=== PATIENT | female | born 1955 | race Two or more races ===

== ENCOUNTER 2020-09-11 14:39 | Inpatient (IN) | payer OTHER, MEDICAID ==
[~2020-09-11] VITALS: Ht 121.9 cm; Wt 71.4 kg
[2020-09-11] MEDS ORDERED: ONDANSETRON HCL 4 MG/2 ML VIAL IV ONE (15:00)
[2020-09-11] MEDS ORDERED: MORPHINE SULFATE 4 MG/ML SYR/VIAL IV ONE (15:00)
[2020-09-11] MEDS ORDERED: SODIUM CHLORIDE 0.9% 500 ML IVB ONE (15:00)
[2020-09-11 15:31] LABS: Urine Bacteria FEW /hpf (None Seen); Urine Blood Negative /uL (Negative); Urine WBC <1 /hpf (0 - 5)
[2020-09-11 15:43] LABS: Basophils # (auto) 0.2 10 ^3/uL (0-0.2); Basophils % (auto) 1.2 % (0.0-2.0); Eosinophils # (auto) 0.1 10 ^3/uL (0-0.8); Eosinophils % (auto) 0.4 % (0.0-7.0); Hematocrit 37.1 % (36.0-46.0); Hemoglobin 12.4 g/dL (12.2-16.2); Lymphocytes # (auto) 3.1 10 ^3/uL (0.4-5.4); Mean Corpuscular Hemoglobin 28.9 pg (28.0-32.0); Mean Corpuscular Hgb Conc. 33.4 g/dL (32.0-36.0); Mean Corpuscular Volume 86.5 fL (80.0-100.0); Neutrophils # (auto) 12.2 10 ^3/uL (1.6-8.6); Neutrophils % (auto) 73.4 % (37.0-80.0); Nucleated Red Blood Cells % 0.1 %; Red Blood Cells 4.28 10^6/uL (4.0-5.20); White Blood Cell 16.6 10^3/uL (4.4-10.8)
[2020-09-11] MEDS ORDERED: metroNIDAZOLE 500MG/100ML 100 ML IV ONE (15:45)
[2020-09-11 16:01] LABS: Albumin 3.6 g/dL (3.4-5.0); BUN/Creatinine Ratio 13.8; Calcium 8.8 mg/dL (8.5-10.1); Potassium 4.5 mmol/L (3.5-5.1)
[2020-09-11 16:04] LABS: Bilirubin, Total 0.5 mg/dL (0.2-1.0)
[2020-09-11] MEDS ORDERED: MORPHINE SULF INJ 2 MG/ML SYRINGE 1ML IV PRN ×2 (17:00)
[2020-09-11] MEDS ORDERED: hydrALAZINE HCL 20 MG/ML VL IV PRN (17:00)
[2020-09-11] MEDS ORDERED: ONDANSETRON HCL 4 MG/2 ML VIAL IV PRN (17:00)
[2020-09-11] MEDS ORDERED: NITROGLYCERIN 0.4 MG SL TAB SL PRN (17:00)
[2020-09-11] MEDS ORDERED: DEXTROSE (50%) 50ML SYRG IV PRN (17:00)
[2020-09-11] MEDS: ACCU-CHEK COMFORT CURVE STRIP VI SCH ×2 (17:44→21:14)
[2020-09-11] MEDS: InsuLIN REG 1unit/0.01ml Soln (100units/ml) SC SCH ×2 (17:47→21:51)
[2020-09-11 18:41] VITALS: BP 115/60
[2020-09-11] MEDS ORDERED: LISI-716 PO (19:14)
[2020-09-11] MEDS ORDERED: METF-372 PO (19:14)
[2020-09-11] MEDS ORDERED: FENO145T27 PO (19:14)
[2020-09-11] MEDS ORDERED: ASPI81CH59 PO (19:27)
[2020-09-11] MEDS ORDERED: GLIP5TAB12 PO (19:27)
[2020-09-11] MEDS ORDERED: LISI2.5T47 PO (19:27)
[2020-09-11] MEDS ORDERED: METF-370 PO (19:27)
[2020-09-11] MEDS ORDERED: CIPR500T4 PO (19:27)
[2020-09-11] MEDS ORDERED: TOPI15CA10 PO (19:27)
[2020-09-11] MEDS ORDERED: DOXY50CA PO (19:27)
[2020-09-11] MEDS ORDERED: GLIM-6 PO (19:27)
[2020-09-11] MEDS ORDERED: ERY05OO EACHEYE (19:27)
[2020-09-11] MEDS ORDERED: CHOL20009 PO (19:27)
[2020-09-11 20:00] VITALS: BP 117/61
[2020-09-11] MEDS: metroNIDAZOLE 500MG/100ML 100 ML IV SCH (21:14)
[2020-09-12 05:00] VITALS: BP 101/50
[2020-09-12] MEDS: metroNIDAZOLE 500MG/100ML 100 ML IV SCH ×3 (05:37→21:57)
[2020-09-12] MEDS: ACCU-CHEK COMFORT CURVE STRIP VI SCH ×4 (06:28→22:23)
[2020-09-12] MEDS: InsuLIN REG 1unit/0.01ml Soln (100units/ml) SC SCH ×4 (06:28→22:00)
[2020-09-12 06:41] LABS: Basophils # (auto) 0.1 10 ^3/uL (0-0.2); Basophils % (auto) 0.6 % (0.0-2.0); Eosinophils # (auto) 0.1 10 ^3/uL (0-0.8); Eosinophils % (auto) 0.8 % (0.0-7.0); Hematocrit 33.7 % (36.0-46.0); Hemoglobin 11.3 g/dL (12.2-16.2); Lymphocytes # (auto) 2.5 10 ^3/uL (0.4-5.4); Lymphocytes % (auto) 23.8 % (10.0-50.0); Mean Corpuscular Hemoglobin 28.8 pg (28.0-32.0); Mean Corpuscular Hgb Conc. 33.5 g/dL (32.0-36.0); Mean Corpuscular Volume 86.2 fL (80.0-100.0); Monocytes # (auto) 0.8 10 ^3/uL (0-1.3); Monocytes % (auto) 7.1 % (0.0-12.0); Neutrophils # (auto) 7.2 10 ^3/uL (1.6-8.6); Neutrophils % (auto) 67.7 % (37.0-80.0); Nucleated Red Blood Cells % 0.1 %; Red Blood Cells 3.91 10^6/uL (4.0-5.20); Red Cell Distribution Width 13.1 % (11.8-14.3); White Blood Cell 10.7 10^3/uL (4.4-10.8)
[2020-09-12 06:57] LABS: Albumin 3.1 g/dL (3.4-5.0); Calcium 8.4 mg/dL (8.5-10.1)
[2020-09-12 07:03] LABS: BUN/Creatinine Ratio 16.7; Bilirubin, Total 0.6 mg/dL (0.2-1.0); Total Protein 7.3 g/dL (6.4-8.2)
[2020-09-12 09:00] VITALS: BP 134/69
[2020-09-12] MEDS: amLODIPine BESYLATE 5 MG TAB PO SCH (10:11)
[2020-09-12] MEDS: PANTOPRAZOLE 40 MG/10 ML VIAL INJ IV SCH (10:12)
[2020-09-12] MEDS: cefTRIAXone 1GM/50ML D5W 50 ML IV SCH (10:14)
[2020-09-12] MEDS: SODIUM CHLORIDE 0.9% 1,000 ML IV SCH ×2 (12:45→22:18)
[2020-09-12 13:00] VITALS: BP 115/62
[2020-09-12 17:00] VITALS: BP 100/64
[2020-09-12 21:39] VITALS: BP 101/51
[2020-09-13] MEDS: SODIUM CHLORIDE 0.9% 1,000 ML IV SCH ×2 (02:05→08:45)
[2020-09-13 05:34] VITALS: BP 99/54
[2020-09-13] MEDS: ACCU-CHEK COMFORT CURVE STRIP VI SCH ×2 (06:01→11:47)
[2020-09-13] MEDS: InsuLIN REG 1unit/0.01ml Soln (100units/ml) SC SCH ×2 (06:01→11:48)
[2020-09-13] MEDS: metroNIDAZOLE 500MG/100ML 100 ML IV SCH (06:01)
[2020-09-13 09:00] VITALS: BP 113/53
[2020-09-13] MEDS: PANTOPRAZOLE 40 MG/10 ML VIAL INJ IV SCH (10:03)
[2020-09-13] MEDS: cefTRIAXone 1GM/50ML D5W 50 ML IV SCH (10:04)
[2020-09-13 10:05] LABS: Basophils # (auto) 0 10 ^3/uL (0-0.2); Basophils % (auto) 0.5 % (0.0-2.0); Eosinophils # (auto) 0.2 10 ^3/uL (0-0.8); Eosinophils % (auto) 2.5 % (0.0-7.0); Hematocrit 33.1 % (36.0-46.0); Hemoglobin 10.9 g/dL (12.2-16.2); Lymphocytes # (auto) 2.4 10 ^3/uL (0.4-5.4); Lymphocytes % (auto) 33.9 % (10.0-50.0); Mean Corpuscular Hemoglobin 28.8 pg (28.0-32.0); Mean Corpuscular Hgb Conc. 33.1 g/dL (32.0-36.0); Mean Corpuscular Volume 87.2 fL (80.0-100.0); Monocytes # (auto) 0.5 10 ^3/uL (0-1.3); Neutrophils % (auto) 56.1 % (37.0-80.0); Nucleated Red Blood Cells % 0.1 %; Red Blood Cells 3.79 10^6/uL (4.0-5.20); Red Cell Distribution Width 12.8 % (11.8-14.3); White Blood Cell 7.1 10^3/uL (4.4-10.8)
[2020-09-13] MEDS: amLODIPine BESYLATE 5 MG TAB PO SCH (10:06)
[2020-09-13 11:41] VITALS: BP 113/53
[2020-09-13 12:25] VITALS: BP 163/83
== END 2020-09-13 14:43 | disposition home or self-care (01) | DRG 872 ==
LOC: ER 14:39 → OVERFLOW 16:51 → EAST 18:19
PROVIDERS: ADMIT Nurse Practitioner Acute Care; ATTEND Family Medicine
DX: A41.9 Sepsis, unspecified organism (principal); K57.32 Diverticulitis of large intestine without perforation or abscess without bleeding; Z68.42 Body mass index [BMI] 45.0-49.9, adult; E11.9 Type 2 diabetes mellitus without complications; I10 Essential (primary) hypertension; E66.9 Obesity, unspecified; Z20.822 Contact with and (suspected) exposure to COVID-19; E78.00 Pure hypercholesterolemia, unspecified; E78.5 Hyperlipidemia, unspecified; F17.210 Nicotine dependence, cigarettes, uncomplicated; Z79.84 Long term (current) use of oral hypoglycemic drugs; Z83.3 Family history of diabetes mellitus; Z90.49 Acquired absence of other specified parts of digestive tract; Z90.710 Acquired absence of both cervix and uterus
CPT/HCPCS: 36415; 74176; 80053; 81001; 82962; 83036; 83690; 85025; 87426; 93005; 96361; 96365; 96366; 96375; C9113; G0378; J0696; J1815; J2405; J3490

== ENCOUNTER 2023-02-22 03:55 | Emergency (ER) | payer OTHER, MEDICAID ==
[~2023-02-22] VITALS: Ht 149.9 cm; Wt 77.6 kg
[~2023-02-22 03:55] MED LIST: ASPI81CH59 PO; CHOL20009 PO; CIPR500T4 PO; DOXY50CA PO; ERY05OO EACHEYE; FENO145T27 PO; GLIM2TAB94 PO; GLIP5TAB12 PO; LISI10TA34 PO; LISI2.5T47 PO; METF-370 PO; METF-372 PO; TOPI15CA10 PO
[2023-02-22 05:29] LABS: Basophils # (auto) 0.1 10 ^3/uL (0-0.2); Basophils % (auto) 0.5 % (0.0-2.0); Eosinophils # (auto) 0.1 10 ^3/uL (0-0.8); Eosinophils % (auto) 0.7 % (0.0-7.0); Hematocrit 38.6 % (36.0-46.0); Hemoglobin 12.5 g/dL (12.2-16.2); Lymphocytes # (auto) 3.1 10 ^3/uL (0.4-5.4); Lymphocytes % (auto) 20.6 % (10.0-50.0); Mean Corpuscular Hemoglobin 28.3 pg (28.0-32.0); Mean Corpuscular Hgb Conc. 32.4 g/dL (32.0-36.0); Mean Corpuscular Volume 87.3 fL (80.0-100.0); Monocytes % (auto) 6.6 % (0.0-12.0); Neutrophils # (auto) 10.6 10 ^3/uL (1.6-8.6); Neutrophils % (auto) 71.6 % (37.0-80.0); Nucleated Red Blood Cells % 0.1 %; Red Blood Cells 4.41 10^6/uL (4.0-5.20); Red Cell Distribution Width 13.7 % (11.8-14.3); White Blood Cell 14.9 10^3/uL (4.4-10.8)
[2023-02-22 05:52] LABS: Alanine Aminotransferase 15 U/L (7-40); Alkaline Phosphatase 109 U/L (46-116); Anion Gap 11 (5-15); Aspartate Aminotransferase 10 U/L (13-40); BUN/Creatinine Ratio 8.2 (10.0-20.0); Blood Urea Nitrogen 5 mg/dL (9-23); Carbon Dioxide 22 mmol/L (20-30); Chloride 101 mmol/L (98-107); Glucose 209 mg/dL (74-106); Potassium 3.9 mmol/L (3.5-5.1); Sodium 134 mmol/L (136-145)
[2023-02-22 05:53] LABS: Albumin 4.5 g/dL (3.2-4.8); Bilirubin, Total 0.9 mg/dL (0.2-1.0); Total Protein 7.3 g/dL (5.7-8.2)
[2023-02-22 06:20] VITALS: PULSE 90; RESP 20; TEMP 99; O2SAT 98
[2023-02-22 06:31] LABS: Urine Bacteria NONE SEEN /hpf (None Seen); Urine Blood Negative /uL (Negative); Urine Clarity Clear (Clear); Urine Color Colorless (Yellow); Urine Protein, UAD 2+ (Negative); Urine Specific Gravity 1.003 (1.001-1.035); Urine Urobilinogen Normal (Negative); Urine WBC 1 /hpf (0 - 5); Urine pH 6.5 (5.0-8.0)
[2023-02-22] MEDS ORDERED: ONDANSETRON HCL 4 MG/2 ML VIAL IV ONE (07:15)
[2023-02-22] MEDS ORDERED: MORPHINE SULFATE 4 MG/ML SYR/VIAL IV ONE (07:15)
[2023-02-22] MEDS ORDERED: IOHEXOL 300 MG/ML 100ML BOTTLE IJ ONE (07:22)
[2023-02-22 07:34] VITALS: PULSE 90; RESP 20; O2SAT 98
[2023-02-22] MEDS ORDERED: metroNIDAZOLE 500MG/100ML 100 ML IV ONE (08:15)
[2023-02-22] MEDS ORDERED: CIPROFLOXACIN 400MG/200ML 200 ML IV ONE (08:15)
[2023-02-22] MEDS ORDERED: TRAM-711 PO (09:58)
[2023-02-22] MEDS ORDERED: METR-344 PO ×3 (09:58→11:04)
[2023-02-22] MEDS ORDERED: CIPR-173 PO ×3 (09:58→11:04)
[2023-02-22 10:00] VITALS: BP 106/56; PULSE 80; RESP 18; O2SAT 98
[2023-02-22] MEDS ORDERED: NAP500T PO ×3 (10:01→11:04)
== END 2023-02-22 10:29 | disposition home or self-care (01) ==
LOC: ER 03:55
DX: K57.92 Diverticulitis of intestine, part unspecified, without perforation or abscess without bleeding (principal); E11.9 Type 2 diabetes mellitus without complications; E78.5 Hyperlipidemia, unspecified; I10 Essential (primary) hypertension; F17.210 Nicotine dependence, cigarettes, uncomplicated; Z90.49 Acquired absence of other specified parts of digestive tract; Z90.710 Acquired absence of both cervix and uterus
CPT/HCPCS: 36415; 74177; 80053; 81001; 83605; 83690; 85025; 96365; 96368; 96375; 99285; J0744; J2270; J2405; J3490; Q9967

== ENCOUNTER 2024-02-24 13:31 | Inpatient (IN) | payer OTHER, MEDICAID ==
[~2024-02-24] VITALS: Ht 149.9 cm; Wt 77.6 kg
[~2024-02-24 13:31] MED LIST changes: +AMIO200T33 PO; +APIX5TAB PO; +CIPR-173 PO; +DRON400T PO; +FURO20TA3 PO; -GLIP5TAB12 PO; +GLIP5TAB21 PO; +LEVO25TA6 PO; +METR-344 PO; +NAP500T PO
--- NOTE | 2024-02-24 13:43 | ED.PDOC ---
History of Present Illness HPI Comments 68-year-old female came to the ER stating that she has been having chest pain shortness a breath which started this morning. She can not walk more than few steps without being short of breath. Chest pain does not radiate to the back. She does have a history of hypertension diabetes asthma atrial fibrillation. She has not taken any medication for her chest pain. Denies any other symptoms. Time Seen by MD: 13:35 Primary Care Provider: LAINA MONTILLA Reviewed Notes: Nurses Notes, Medications, Allergies Allergies: Coded Allergies: NO KNOWN ALLERGIES (Unverified , 09/11/20) Home Meds Active Scripts Naproxen (NAPROSYN TABLET) 500 Mg Tb, 1 TAB PO BID PRN, #20 TAB 1 Refill Prov:ESDRAS CROSS MD 02/22/23 Metronidazole (Flagyl) 500 Mg Tab, 1 TAB PO BID, #20 TAB Prov:ESDRAS CROSS MD 02/22/23 Ciprofloxacin Hcl (Cipro) 500 Mg Tab, 1 TAB PO BID, #20 TAB Prov:ESDRAS CROSS MD 02/22/23 Reported Medications Topiramate (Topiramate) 15 Mg Cap, PO 09/11/20 Cholecalciferol (VITAMIN D) 2,000 Unit Tab, 1 TAB PO DAILYPRN 09/11/20 Lisinopril (Lisinopril) 2.5 Mg Tab, PO 09/11/20 Metformin Hydrochloride (Metformin Hcl) 500 Mg Tab, PO 09/11/20 Glipizide (Glipizide) 5 Mg Tab, PO 09/11/20 Erythromycin (Erythromycin) 5 Mg/Gm Oin, 0.25 EACHEYE 09/11/20 Doxycycline Hyclate (Doxycycline Hyclate) 50 Mg Cap, 1 CAP PO BID 09/11/20 Glimepiride (Glimepiride) 2 Mg Tab, 1 TAB PO DAILYPRN 09/11/20 Ciprofloxacin Hcl (Ciprofloxacin Hcl) 500 Mg Tab, 1 TAB PO BID 09/11/20 Aspirin (Aspirin Low Dose) 81 Mg Chw, 1 TAB PO DAILYPRN 09/11/20 Fenofibrate (FENOFIBRATE) 145 Mg Tab, 1 TAB PO DAILYPRN 09/11/20 Lisinopril (Lisinopril) 10 Mg Tab, 1 TAB PO DAILYPRN 09/11/20 Metformin Hydrochloride (Metformin Hcl) 1,000 Mg Tab, 1 TAB PO BID 09/11/20 Information Source: Patient Mode of Arrival: Ambulatory Severity: Moderate Timing: Hours Duration: Since onset Past Medical History PAST MEDICAL HISTORY: AFIB, DM, High Lipids, HTN Surgical History: Cholecystectomy, , 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 Family History Family History: Reviewed,noncontributory to illness, Family hx of DM Social History Smoker: Cigarettes Alcohol: Denies ETOH Use Drugs: Denies Drug Use Lives In: Home Constitutional: denies: chills, diaphoresis, fatigue, fever, malaise, sweats, weakness, others EENTM: denies: blurred vision, double vision, ear bleeding, ear discharge, ear drainage, ear pain, ear ringing, eye pain, eye redness, hearing loss, mouth pain, mouth swelling, nasal discharge, nose bleeding, nose congestion, nose pain, photophobia, tearing, throat pain, throat swelling, voice changes, others Respiratory: reports: SOB with excertion; denies: cough, hemoptysis, orthopnea, SOB at rest, shortness of breath, stridor, wheezing, others Cardiovascular: reports: chest pain; denies: dizzy spells, diaphoresis, Dyspnea on exertion, edema, irregular heart beat, left arm pain, lightheadedness, palpitations, PND, syncope, others Gastrointestinal: denies: abdomen distended, abdominal pain, blood streaked bowels, constipated, diarrhea, dysphagia, difficulty swallowing, hematemesis, melena, nausea, poor appetite, poor fluid intake, rectal bleeding, rectal pain, vomiting, others Genitourinary: denies: abnormal vagina bleeding, burning, dyspareunia, dysuria, flank pain, frequency, hematuria, incontinence, pain, , vagina discharge, urgency, others Neurological: denies: dizziness, fainting, headache, left sided numbness, left sided weakness, numbness, paresthesia, pre-existing deficit, right sided numbness, right sided weakness, seizure, speech problems, tingling, tremors, weakness, others Musculoskeletal: denies: back pain, gout, joint pain, joint swelling, muscle pain, muscle stiffness, neck pain, others Integumetry: denies: bruises, change in color, change in hair/nails, dryness, laceration, lesions, lumps, rash, wounds, others Allergic/Immunocompromised: denies: Difficulty Healing, Frequent Infections, Hives, Itching, others Hematologic/Lymphatic: denies: anemia, blood clots, easy bleeding, easy bruising, swollen glands, others Endocrine: denies: excessive hunger, excessive sweating, excessive thirst, excessive urination, flushing, intolerance to cold, intolerance to heat, unexplained weight gain, unexplained weight loss, others Psychiatric: denies: anxiety, bipolar disorder, depression, hopeless, panic disorder, schizophrenia, sleepless, suicidal, others Physical Exam General Appearance: Moderate Distress HEENT: Normal ENT Inspection, Pharynx Normal, TMs Normal Neck: Full Range of Motion, Non-Tender, Normal, Normal Inspection Respiratory: Other (Coarse breath sounds) Cardiovascular: Irregular Breast Exam: Deferred Gastrointestinal: No Organomegaly, Non Tender, No Pulsatile Mass, Normal Bowel Sounds, Soft Genitalia: Deferred Pelvic: Deferred Rectal: Deferred Extremities: No calf tenderness, Normal capillary refill, Normal inspection, Normal range of motion, Non-tender, No pedal edema Musculoskeletal : Apperance: Normal Neurologic: Alert, divorce mediator II-XII nml as Tested, No Motor Deficits, Normal Affect, Normal Mood, No Sensory Deficits Cerebellar Function: NOT DONE Reflexes: NOT DONE Skin: Dry, Normal Color, Warm Peripheral Pulses: 3+ Radial (R), 3+ Radial (L) Lymphatic: No Adenopathy Was a procedure done? Was a procedure done?: No Differential Dx Considerations may include: Chest pain Electrolyte imbalance X-Ray, Labs, Meds, VS Patient alert. Complaining of chest pain. Shortness of breath. Vitals stable. Chronic history. Chest pain is new onset. Was given aspirin. EKG reviewed shows atrial fibrillation. Reviewed her previous visit. Explained to the patient. Continue cardiac monitoring. Time of 1ST Reevaluation: 13:41 Reevaluation 1ST: Unchanged Patient Education/Counseling: Diagnosis, Treatment, Prognosis Family Education/Counseling: No Family Present Departure 1 Departure Time of Disposition: 13:42 Impression: Primary Impression: Chest pain of unknown etiology Additional Impressions: Hypertension Qualified Codes: I10 - Essential (primary) hypertension Atrial fibrillation Qualified Codes: I48.0 - Paroxysmal atrial fibrillation Disposition: ADMITTED INPATIENT Admit to: Med Surg Condition: Guarded Critical Care Note Critical Care Time?: Yes (90 min-critical care time only) Stability Stability form required: No Heart Score Heart Score: Heart Score Response (Comments) Value History Slightly Suspicious 0 EKG Normal 0 Age >65 2 Risk Factors >3 or Hx ASHD 2 Troponin Normal limit 0 Total 4 RAVEN LAUREN MD Feb 24, 2024 13:43
[2024-02-24 14:04] LABS: Basophils # (auto) 0 10 ^3/uL (0-0.2); Basophils % (auto) 0.4 % (0.0-2.0); Eosinophils # (auto) 0.1 10 ^3/uL (0-0.8); Eosinophils % (auto) 1.3 % (0.0-7.0); Hematocrit 36.2 % (36.0-46.0); Lymphocytes % (auto) 30.7 % (10.0-50.0); Mean Corpuscular Hemoglobin 29.1 pg (28.0-32.0); Mean Corpuscular Volume 88.2 fL (80.0-100.0); Monocytes # (auto) 0.4 10 ^3/uL (0-1.3); Monocytes % (auto) 4.3 % (0.0-12.0); Neutrophils # (auto) 6.3 10 ^3/uL (1.6-8.6); Neutrophils % (auto) 63.3 % (37.0-80.0); Platelet Count (auto) 256 10^3/uL (140-450); Red Blood Cells 4.11 10^6/uL (4.0-5.20); Red Cell Distribution Width 12.9 % (11.8-14.3); White Blood Cell 9.9 10^3/uL (4.4-10.8)
[2024-02-24 14:13] LABS: Potassium 4.1 mmol/L (3.5-5.1); Sodium 140 mmol/L (136-145)
[2024-02-24 14:14] LABS: Anion Gap 8 (5-15); Carbon Dioxide 23 mmol/L (20-31)
[2024-02-24 14:19] LABS: BUN/Creatinine Ratio 15.9 (10.0-20.0); Blood Urea Nitrogen 10 mg/dL (9-23); Glucose 102 mg/dL (74-106)
[2024-02-24 14:26] LABS: Urine Bacteria None Seen /hpf (None Seen)
[2024-02-24 14:36] LABS: Chloride 109 mmol/L (98-107)
[2024-02-24 14:37] LABS: Urine Blood Negative /uL (Negative); Urine Clarity Clear (Clear); Urine Color Light-Yellow (Yellow); Urine Protein, UAD 1+ (Negative); Urine Specific Gravity 1.017 (1.001-1.035); Urine Squamous Epithelial Cell FEW /hpf (<5); Urine Urobilinogen Normal (Negative); Urine WBC 1 /hpf (0 - 5); Urine pH 5.5 (5.0-9.0)
[2024-02-24 16:51] VITALS: PULSE 103; RESP 16; O2SAT 96
--- NOTE | 2024-02-24 16:53 | DVH ---
EXAMINATION: AP portable chest radiograph CLINICAL HISTORY: sob COMPARISON: None TECHNIQUE: Single view of the chest FINDINGS: Negative AP chest. No dominant consolidations. The costophrenic angles are clear. No sizable pleural effusions or pneumo thorax identified. The cardiomediastinal silhouette appears within normal limits given technique. IMPRESSION: 1. Negative AP chest.
[2024-02-24] MEDS: ASPirin 325 MG TAB PO ONE (16:54)
[2024-02-24] MEDS: NITROGLYCERIN 0.4 MG SL TAB SL ONE (16:54)
[2024-02-24] MEDS ORDERED: DOCUSATE SOD 100 MG CAP PO PRN (17:45)
[2024-02-24] MEDS ORDERED: NITROGLYCERIN 0.4 MG SL TAB SL PRN (17:45)
[2024-02-24] MEDS ORDERED: MORPHINE SULFATE INJ 2 MG/ml SYRG IV PRN (17:45)
[2024-02-24] MEDS ORDERED: hydrALAZINE HCL 20 MG/ML VL IV PRN (18:00)
[2024-02-24 18:56] LABS: Amphetamine Screen, Urine Neg (NEGATIVE); Barbiturate Scree,Urine Neg (NEGATIVE); Benzodiazephine Screen, Urine Neg (NEGATIVE); Cannabinoid Screen, Urine Neg (NEGATIVE); Cocaine Screen, Urine Neg (NEGATIVE); Opiate Scree,Urine Neg (NEGATIVE); Phencyclidine Screen, Urine Neg (NEGATIVE)
[2024-02-24] MEDS: CLOPIDOGREL BISULFATE 75 MG TAB PO ONE (18:57)
[2024-02-24] MEDS: FUROSEMIDE 40 MG/4 ML VIAL IV ONE (18:57)
[2024-02-24] MEDS: ATORVASTATIN 20 MG TAB PO ONE (18:57)
[2024-02-24] MEDS: LISINOPRIL 5 MG TAB PO ONE (19:03)
[2024-02-24] MEDS: AMIODARONE HCL 200 MG TAB PO ONE (19:04)
[2024-02-24] MEDS: METOPROLOL SUCCINATE XL 50 MG TAB PO ONE (19:08)
[2024-02-24 19:14] LABS: Blood Alcohol 3.8 mg/dL (<10)
[2024-02-24] MEDS ORDERED: DEXTROSE (50%) 50ML SYRG IV PRN (19:15)
[2024-02-24 19:22] LABS: Lactic Acid w/Reflex 3.8 mmol/L (0.4-2.0)
[2024-02-24] MEDS ORDERED: ALBUTEROL SULF 2.5 MG/0.5ML(0.5%) NEB SOLN NEB PRN (19:30)
[2024-02-24] MEDS ORDERED: IPRATROPIUM BROM 0.5 MG/2.5ML INH SOL NEB PRN (19:30)
--- NOTE | 2024-02-24 19:40 | DVHHPRES ---
History of Present Illness Resident Creating Document: SUSANNA KEANE RESDIENT Reason for Visit: Shortness of breaths History of Present Illness This is a 68-year-old female, past medical history of SD, AFib, hypertension, hypercholesterolemia, came to the hospital with shortness of breaths. Per patient, today morning at 4:00 a.m. the patient waking up with severe shortness of breath which gradually worsened. Shortness of breaths was associated with chest pain and sweating. Chest pain was central chest, radiated to the left arm, comprehensive and the severity was 8/10, increased by mobility and improved by taking nitroglycerin. The patient has history of SD, 4 months back in [facility], did not performed catheterization. Cardiovascular: AFIB, CAD, HTN, SD, hyperipidemia Past Surgical History: Appendectomy, Cholecystectomy, Hysterectomy Family History: CVA, DM Smoke: No ALCOHOL: occassional Drugs: None Lives: with Family Health Maintenance: Other Review of Systems Constitutional: Yes: Sweats, Weakness Respiratory: Shortness of breath, SOB with excertion Cardiovascular: Orthopnea, Paroxysmal Noc. Dyspnea Allergies: Coded Allergies: NO KNOWN ALLERGIES (Unverified , 09/11/20) Medications Metformin 1000 mg 2 times a day, aspirin 81 mg daily, atorvastatin 20 mg daily amiodarone 200 mg daily, pravastatin 20 mg daily, lisinopril 10 mg daily, metoprolol 25 mg, Eliquis 5 mg daily, glimepiride 2 mg daily Current Medications Medications Dose Ordered Sig/Nathaly Route Start Time Stop Time Status Last Admin Dose Admin Nitroglycerin 0.4 mg Q5MINP PRN SL 02/24/24 17:45 Morphine Sulfate 2 mg Q30M PRN IV 02/24/24 17:45 Apixaban 5 mg BID PO 02/25/24 10:00 Docusate Sodium 100 mg PRN PRN PO 02/24/24 17:45 Furosemide 10 mg DAILY IV 02/25/24 10:00 Hydralazine HCl 10 mg PRN PRN IV 02/24/24 18:00 Exam Vital Signs Vital Signs Date Time Temp Pulse Resp B/P (MAP) Pulse Ox O2 Delivery O2 Flow Rate FiO2 02/24/24 18:49 98.4 101 16 118/85 (96) 96 98.4 12/24/24 16:51 Room Air* 0 21 Exam General Appearance: Alert, Oriented X3, Cooperative, No acute distress HEENT: Atraumatic, PERRLA, EOMI, Mucous membrane moist/pink Respiratory: Bilateral lower zone crypts Cardiovascular: Regular rate, Normal S1, Normal S2, No murmurs, no chest wall tenderness Abdominal: Normal bowel sounds, Soft, No tenderness, No hepatospenomegaly, No masses Extremities: Bilateral grade 1 pedal edema Skin: No rashes, No breakdown, No significant lesion Neuro: Normal gait, Normal speech, Strength at 5/5 X4 ext, Normal tone, Sensation intact, Cranial nerves 3-12 NL, Reflexes 2+ Psych/Mental Status: Mental status NL, Mood NL General Appearance: Alert, Oriented X3, Cooperative, No acute distress HEENT: Atraumatic, Mucous membr. moist/pink Respiratory: Other (Bilateral lower zone crypts) Cardiovascular: Normal S1, Normal S2, Other (Regular S1 and S2) Abdominal: Normal bowel sounds, Soft, No tenderness, No hepatospenomegaly, No masses, Other Extremities: No clubbing, No cyanosis, No edema, No tenderness/swelling Skin: No rashes, No breakdown, No significant lesion Neuro: Normal gait, Normal speech, Strength at 5/5 X4 ext, Normal tone, Sensation intact, Cranial nerves 3-12 NL, Reflexes 2+ Psych/Mental Status: Mental status NL, Mood NL Labs/Xrays Chest x-ray shows bilateral prominent bronchovascular marking, and pulmonary congestion Labs Test 02/24/24 18:31 02/24/24 14:24 02/24/24 13:51 Range/Units Urine Color Light-yellow Yellow Urine Clarity Clear Clear Urine pH 5.5 5.0-9.0 Urine Specific [place] 1.017 1.001-1.035 Urine Protein 1+ H Negative Urine Ketones Negative Negative Urine Blood Negative Negative /uL Urine Nitrite Negative Negative Urine Bilirubin Negative Negative Urine Urobilinogen Normal Negative mg/dL Urine Leukocyte Esterase Negative Negative /uL Urine RBC <1 0 - 4 /hpf Urine WBC 1 0 - 5 /hpf Urine Squamous Epithelial Cells Few <5 /hpf Urine Bacteria None seen None Seen /hpf Urine Glucose Normal Normal mg/dL Urine Opiates Screen Neg NEGATIVE Urine Fentanyl Screen Neg NEGATIVE Urine Barbiturates Screen Neg NEGATIVE Urine Phencyclidine Screen Neg NEGATIVE Urine Amphetamines Screen Neg NEGATIVE Urine Benzodiazepines Screen Neg NEGATIVE Urine Cocaine Screen Neg NEGATIVE Urine Cannabinoids Screen Neg NEGATIVE White Blood Count 9.9 4.4-10.8 10^3/uL Red Blood Count 4.11 4.0-5.20 10^6/uL Hemoglobin 12.0 L 12.2-16.2 g/dL Hematocrit 36.2 36.0-46.0 % Mean Corpuscular Volume 88.2 80.0-100.0 fL Mean Corpuscular Hemoglobin 29.1 28.0-32.0 pg Mean Corpuscular Hemoglobin Concent 33.0 32.0-36.0 g/dL Red Cell Distribution Width 12.9 11.8-14.3 % Platelet Count 256 140-450 10^3/uL Mean Platelet Volume 8.2 6.9-10.8 fL Neutrophils (%) (Auto) 63.3 37.0-80.0 % Lymphocytes (%) (Auto) 30.7 10.0-50.0 % Monocytes (%) (Auto) 4.3 0.0-12.0 % Eosinophils (%) (Auto) 1.3 0.0-7.0 % Basophils (%) (Auto) 0.4 0.0-2.0 % Neutrophils # (Auto) 6.3 1.6-8.6 10 ^3/uL Lymphocytes # (Auto) 3.0 0.4-5.4 10 ^3/uL Monocytes # (Auto) 0.4 0-1.3 10 ^3/uL Eosinophils # (Auto) 0.1 0-0.8 10 ^3/uL Basophils # (Auto) 0 0-0.2 10 ^3/uL Nucleated Red Blood Cells 0.0 % Sodium Level 140 136-145 mmol/L Potassium Level 4.1 3.5-5.1 mmol/L Chloride Level 109 H 98-107 mmol/L Carbon Dioxide Level 23 20-31 mmol/L Anion Gap 8 5-15 Blood Urea Nitrogen 10 9-23 mg/dL Creatinine 0.63 0.550-1.02 mg/dL Glomerular Filtration Rate Calc 96 >90 mL/min BUN/Creatinine Ratio 15.9 10.0-20.0 Serum Glucose 102 74-106 mg/dL Hemoglobin A1c 8.6 H <5.7 % A1C Calcium Level 8.0 L 8.7-10.4 mg/dL B-Type Natriuretic Peptide 180.29 0-100 pg/mL Assessment/Plan Assessment/Plan # Acute on chronic systolic heart failure # possible ACS # history of SD, 4 months back Patient complained of shortness of breaths, chest pain, on physical examination bilateral lower zone crypts with grade 1 pedal edema Chest x-ray shows bilateral reticulonodular infiltration, with pulmonary vascular congestion EKG, shows atrial fibrillation with no acute ST or T-wave changes Trop I series, 1st result is within normal limits Check BNP, echocardiogram, lipid profile Counseled Cardiology Aspirin 325 mg Clopidogrel 75 mg Nitroglycerin sublingual # Sepsis, likely due to pneumonia # Pneumonia, likely due to Gram-positive Gram-negative bacteria/viral # Chest x-ray shows bilateral reticulonodular infiltration, with pulmonary vascular congestion # lactic acidosis Check COVID-19, influenza type a and B, MRSA nares Blood, and urine culture Injection azithromycin and ceftriaxone Breathing treatment q.4 hours as needed # chronic Atrial fibrillation Continue Eliquis 5 mg b.i.d. Continue amiodarone 200 mg daily # uncontrolled diabetes mellitus Hb A1c is 8.6 Insulin according to sliding scale #Hypertension Continue lisinopril 10 mg daily Continue metoprolol 25 mg daily # Hyperlipidemia Continue atorvastatin 40 mg daily DIET: Cardiac diet DVT PROPHYLAXIS: Patient is on Eliquis GI PROPHYLAXIS: Protonix BOWEL REGIMEN: Colace 100 mg as needed CODE STATUS: Goal of care discussed for more than 25 minutes, full code DISPOSITION: Telemetry Patient's status discussed with the patient and the son (Monty) on the bedside. Case discussed with Dr. Eaton Plan discussed with: Patient, Son (Monty on the bedside) My Orders Orders - SUSANNA KEANE RESDIENT Procedure Category Date Status Time Admit ADMIT 02/24/24 Transmitted 17:33 Nitroglycerin PHA 02/24/24 In Process Sublingual (Ntrostat 17:45 Morphine Sulfate PHA 02/24/24 In Process Injection 17:45 Oxygen By Nasal RT 02/24/24 Transmitted Cannula 17:33 Stat Ekg For Chest CANDIE 02/24/24 In Process Pain 17:33 Notify Of Changes [facility] 02/24/24 In Process From Base 17:33 Glove Cutter For [facility] 02/24/24 In Process 24 Hours 17:33 Emergency Dysrhythmia CANDIE 02/24/24 In Process Protocol 17:33 Rhythm Strips Once [facility] 02/24/24 In Process Every Shift 17:33 Troponin-I Hs LAB 02/24/24 In Process 17:36 Troponin-I Hs LAB 02/24/24 Logged 18:36 Troponin-I Hs LAB 02/24/24 Logged 20:36 Thyroid Stimulating LAB 02/24/24 In Process Hormone 17:36 Blood Alcohol LAB 02/24/24 In Process 17:36 Covid19 Antigen Judie LAB 02/24/24 Logged Glove Cutter ORDERS 02/24/24 Transmitted 17:36 Echo 2d Mode Cardiac US 02/24/24 Logged DOP 17:36 Lipid Panel LAB 02/24/24 In Process 17:36 Aspartate Amino LAB 02/24/24 In Process Transferase 17:36 Alanine LAB 02/24/24 In Process Aminotransferase 17:36 Docusate Sodium PHA 02/24/24 In Process Capsule (Colace 17:45 Furosemide Injection PHA 02/25/24 In Process (Lasix Injection) 10:00 Lactic Acid W/ Reflex LAB 02/24/24 In Process Order 17:55 Accucheck BD 02/24/24 Transmitted 17:58 Cardiac DIET 02/24/24 Transmitted Diet-2gna,Lofat,Lochol Dinner D-Dimer LAB 02/24/24 In Process 18:08 Apixaban (Eliquis) PHA 02/25/24 In Process 10:00 Metoprolol Xl PHA 02/25/24 In Process Succinate (Toprol Xl) 10:00 Lisinopril Tablet PHA 02/25/24 In Process (Zestril Tablet) 10:00 Clopidogrel Bisulfate PHA 02/25/24 In Process (Plavix) 10:00 Atorvastatin (Lipitor) PHA 02/24/24 In Process 22:00 Aspirin Tablet PHA 02/25/24 In Process 10:00 Amiodarone Tablet PHA 02/25/24 In Process (Cordarone Tablet) 10:00 Ac Mild Insulin Scale CANDIE 02/24/24 In Process (Not Rx) 18:56 Date of Service: Feb 24, 2024 Billing Provider: MAYANK EATON MD Common Visit Codes: 60273-HXCDWPP INP/OBS CARE (HIGH) Secondary Visit Codes: 61747-AQELTLDQ CARE PLAN 30 MINUTES SUSANNA KEANE RESDIENT Feb 24, 2024 19:40 MAYANK EATON MD Feb 24, 2024 20:22
[2024-02-24 20:30] VITALS: BP 176/88; PULSE 101; RESP 18; TEMP 98.4; O2SAT 96
[2024-02-24] MEDS: InsuLIN REG 1unit/0.01ml Soln (100units/ml) SC SCH (20:32)
[2024-02-24] MEDS: ACCU-CHEK COMFORT CURVE STRIP VI SCH (20:32)
[2024-02-24] MEDS: PANTOPRAZOLE 40 MG TAB PO ONE (20:36)
[2024-02-24 22:09] VITALS: BP 168/79; PULSE 95; RESP 17; TEMP 97.7; O2SAT 96
[2024-02-24] MEDS: ATORVASTATIN 20 MG TAB PO SCH (23:17)
[2024-02-25] VITALS (10 sets, daily range): BP systolic 108–133; BP diastolic 57–89; PULSE 71–105; RESP 16–20; TEMP 97.7–98.3; O2SAT 95–96
[2024-02-25 01:21] LABS: COVID19 ANTIGEN SOFIA FIA NEGATIVE (NEGATIVE)
[2024-02-25] MEDS: PANTOPRAZOLE 40 MG TAB PO SCH (04:44)
[2024-02-25] MEDS: cefTRIAXone 1GM/50ML D5W 50 ML IV SCH (09:02)
[2024-02-25] MEDS: AZITHROMYCIN 500MG/ 250ML 250 ML IV SCH (09:56)
[2024-02-25] MEDS: AMIODARONE HCL 200 MG TAB PO SCH (09:56)
[2024-02-25] MEDS: LISINOPRIL 5 MG TAB PO SCH (09:57)
[2024-02-25] MEDS: ASPirin 81 mg TAB PO SCH (09:58)
[2024-02-25] MEDS: METOPROLOL SUCCINATE XL 50 MG TAB PO SCH (09:58)
[2024-02-25] MEDS: APIXABAN 5 MG TAB PO SCH (09:58)
[2024-02-25] MEDS: FUROSEMIDE 20 MG/2 ML VIAL IV SCH (09:59)
[2024-02-25] MEDS ORDERED: CLOPIDOGREL BISULFATE 75 MG TAB PO ONE ×2 (10:00)
[2024-02-25 11:23] LABS: Lactic Acid w/Reflex 3.3 mmol/L (0.4-2.0)
--- NOTE | 2024-02-25 11:30 | DVHSR ---
APPROVED REPORT EXAM: Two-dimensional and M-mode echocardiogram with Doppler and color Doppler. Blood Pressure: 133/76 mmHg INDICATION sob and pedal edema DIMENSIONS LVDd4.0 (3.8-5.7cm)LA (2D)3.9 (1.9-4.0cm)Aortic Root2.8 (2.0-3.7cm) LVDs2.8 (2.5-4.0cm)LA (MM) (1.9-4.0cm)Aortic Cusp Exc1.7 (1.5-2.0cm) EF (%) 54.7 (55-70%)Rt. Atrium3.7 (1.9-4.0cm)Asc. Aorta cm IVSd1.3 (0.7-1.1cm)RV (D)3.2 (1.8-2.4cm) PWd1.1 (0.7-1.1cm) Mitral Valve MitralMitral Stenosis E wave1.20m/sMV Mean GR.mmHg A wave0.47m/sMV Peak GR.52mmHg E/A ratio2.62D MVAcm2 DECEL [id number] 1/2 Timems Aortic Valve Aortic ValveAortic Stenosis V10.83m/Riana Mean GR.5mmHg V21.52m/Riana Peak GR.9mmHg Pulmonic Valve V21.00m/s Tricuspid Valve TR Velocity1.82m/s [id number] Conclusion Mildly reduced left ventricular systolic function estimated ejection fraction of 45-50%. There is a grade 1 diastolic dysfunction. Normal right ventricular size and dimension. Normal right ventricular systolic function. Mildly dilated right and left atria. The aortic valve is thickened and sclerotic. Mitral valve is mildly thickened there is mild mitral valve regurgitation. There Is a mild tricuspid valve regurgitation. There is a mild pulmonary valve regurgitation. No significant pericardial effusion.
[2024-02-25] MEDS: SODIUM CHLORIDE 0.9% 1,000 ML IV ONE (12:53)
--- NOTE | 2024-02-25 13:26 | DVHINCON2 ---
DATE OF CONSULTATION: 02/25/2024 REFERRING PHYSICIAN: Dr. Swanson. CONSULTING PHYSICIAN: Dr. Baez, covering for Dr. Nuñez. INDICATION: Shortness of breath, chest pain. HISTORY OF PRESENT ILLNESS: The patient is a 68-year-old female with history of diabetes, hypertension, obesity, AFib, on anticoagulation, presented to the hospital with complaints of shortness of breath and chest pain. Described the pain as left-sided tightness, radiating to her left arm. AL has been ruled out with serial negative troponin. The patient reported that she has been having on and off exertional chest pressure prior to this episode. PAST MEDICAL HISTORY: * Diabetes. * Hypertension. * AFib. * Obesity. MEDICATIONS: Per med rec. ALLERGIES: No known drug allergies. PHYSICAL EXAMINATION: GENERAL: Alert and awake, in no form of cardiopulmonary distress. VITAL SIGNS: Blood pressure 120/89, pulse 71 per minute, saturation 90%. HEENT: No carotid bruits. No jugular venous distention. CHEST: Bilateral air entry. CARDIOVASCULAR: Submucosal and palpable. Normal S1, S2. Irregularly irregular. EXTREMITIES: No peripheral edema. DIAGNOSTIC DATA: Troponin negative x 3. Sodium 140, potassium 4.1, creatinine is 0.6. CBC is normal. ASSESSMENT: * Chest pain syndrome, possible unstable angina. * Diabetes. * Hypertension. * Atrial fibrillation, rate controlled. * Obesity. RECOMMENDATIONS: * Continue with aspirin. * Continue statin therapy. * Hold anticoagulation. * We will review echo. * The patient will need left heart catheterization to define coronary anatomy. The patient understands risks, benefits and alternatives and agreed to proceed. * Continue telemetry and monitor for now. Thank you for allowing me to partake in the care of this patient. MD UTE Coleman/KEI/JENNIFER TID: [id number] RECEIPT: [id number]
--- NOTE | 2024-02-25 15:19 | DVHPNRES ---
Progress Note Date Seen: Feb 25, 2024 Resident Creating Document: SUSANNA KEANE ZAKIYA Has the PT tested + for MRSA If YES, has PT been informed?: Yes Medical Necessity Reason Pt with a Central, PICC or Fol: No Subjective Review of Systems This is a 68-year-old female, past medical history of IA, AFib, hypertension, hypercholesterolemia, came to the hospital with shortness of breaths. Per patient, today morning at 4:00 a.m. the patient waking up with severe shortness of breath which gradually worsened. Shortness of breaths was associated with chest pain and sweating. Chest pain was central chest, radiated to the left arm, comprehensive and the severity was 8/10, increased by mobility and improved by taking nitroglycerin. The patient has history of IA, 4 months back in [facility], did not performed catheterization. Today, patient seen and examined at the bedside, patient is feeling better, but still complain of SOB. Patient reports: Feels better Changes from previous H/P or p: Changes Objective vital signs Vital Sign Date Time Temp Pulse Resp B/P (MAP) Pulse Ox O2 Delivery O2 Flow Rate FiO2 02/25/24 13:00 97.8 105 18 108/57 (74) 95 97.8 02/25/24 08:00 Room Air* 0 21 Total Intake and Output 02/24/24 02/24/24 02/25/24 15:00 23:00 07:00 Intake Total 180 ml Balance 180 ml medications Current Medications Medications Dose Ordered Sig/Nathaly Route Start Time Stop Time Status Last Admin Dose Admin Nitroglycerin 0.4 mg Q5MINP PRN SL 02/24/24 17:45 Morphine Sulfate 2 mg Q30M PRN IV 02/24/24 17:45 Docusate Sodium 100 mg PRN PRN PO 02/24/24 17:45 Metoprolol Succinate 25 mg DAILY PO 02/25/24 10:00 02/25/24 09:58 25 MG Lisinopril 10 mg DAILY PO 02/25/24 10:00 02/25/24 09:57 10 MG Atorvastatin Calcium 20 mg HS PO 02/24/24 22:00 02/24/24 23:17 20 MG Aspirin 81 mg DAILY PO 02/25/24 10:00 02/25/24 09:58 81 MG Amiodarone HCl 200 mg DAILY PO 02/25/24 10:00 02/25/24 09:56 200 MG Diagnostic Test (Pha) 1 strip IQ4HR 02/24/24 20:00 02/25/24 12:24 1 STRIP Insulin Human Regular IQ4HR SC 02/24/24 20:00 02/25/24 12:24 4 UNITS Dextrose 50 ml UD PRN IV 02/24/24 19:15 Pantoprazole Sodium 40 mg DAILY@0600 PO 02/25/24 06:00 02/25/24 04:44 40 MG Azithromycin 250 ml @ 125 mls/hr DAILY IV 02/25/24 10:00 02/25/24 09:56 125 MLS/HR Ceftriaxone Sodium 50 ml @ 100 mls/hr DAILY@09 IV 02/25/24 09:00 02/25/24 09:02 100 MLS/HR Ipratropium [place] 0.5 mg Q6HPRN PRN NEB 02/24/24 19:30 Albuterol 2.5 mg Q6HPRN PRN NEB 02/24/24 19:30 Examination General Appearance: Alert, Oriented X3, Cooperative, No acute distress HEENT: Atraumatic, PERRLA, EOMI, Mucous membrane moist/pink Respiratory: Bilateral lower zone crypts Cardiovascular: Regular rate, Normal S1, Normal S2, No murmurs, no chest wall tenderness Abdominal: Normal bowel sounds, Soft, No tenderness, No hepatospenomegaly, No masses Extremities: Bilateral grade 1 pedal edema Skin: No rashes, No breakdown, No significant lesion Neuro: Normal gait, Normal speech, Strength at 5/5 X4 ext, Normal tone, Sensation intact, Cranial nerves 3-12 NL, Reflexes 2+ Psych/Mental Status: Mental status NL, Mood NL laboratory and microbiology Laboratory Tests 02/24/24 13:51 Test 02/24/24 13:51 Range/Units Serum Glucose 102 74-106 mg/dL Microbiology Date/Time Source Procedure Growth Status 02/24/24 23:30 Nose MRSA Screen - Final Complete 02/24/24 14:24 Voided Urine Urine Culture - Preliminary Resulted Labs and/or images reviewed: Labs reviewed by me, Image(s) reviewed by me Problem List/Assessment/Plan Problem List/Assessment/Plan # Acute on chronic systolic heart failure # possible ACS # history of IA, 4 months back Patient complained of shortness of breaths, chest pain, on physical examination bilateral lower zone crypts with grade 1 pedal edema Chest x-ray shows bilateral reticulonodular infiltration, with pulmonary vascular congestion EKG, shows atrial fibrillation with no acute ST or T-wave changes Trop I series, negative Echo shows, mildly reduced left ventricular systolic function estimated ejection fraction of 45-50% Counseled Cardiology, planned for catheterization Aspirin 325 mg Clopidogrel 75 mg Nitroglycerin sublingual # Sepsis, likely due to pneumonia # Pneumonia, likely due to Gram-positive Gram-negative bacteria/viral # Chest x-ray shows bilateral reticulonodular infiltration, with pulmonary vascular congestion # lactic acidosis Check COVID-19, influenza type a and B, MRSA nares Blood, and urine culture Injection azithromycin and ceftriaxone Breathing treatment q.4 hours as needed Lactic acid is raised, discontinued lasix, give IV fluid # chronic Atrial fibrillation Continue Eliquis 5 mg b.i.d. Continue amiodarone 200 mg daily # uncontrolled diabetes mellitus Hb A1c is 8.6 Insulin according to sliding scale #Hypertension Continue lisinopril 10 mg daily Continue metoprolol 25 mg daily # Hyperlipidemia Continue atorvastatin 40 mg daily DIET: Cardiac diet DVT PROPHYLAXIS: Patient is on Eliquis GI PROPHYLAXIS: Protonix BOWEL REGIMEN: Colace 100 mg as needed CODE STATUS: Goal of care discussed for more than 25 minutes, full code DISPOSITION: Telemetry Patient's status discussed with the patient and the boyfriend on the bedside. Case discussed with Dr. Eaton Plan discussed with: Patient, Spouse, Other (RN) My Orders My Orders Orders - SUSANNA KEANE Procedure Category Date Status Time Admit ADMIT 02/24/24 Transmitted 17:33 Nitroglycerin PHA 02/24/24 In Process Sublingual (Ntrostat 17:45 Morphine Sulfate PHA 02/24/24 In Process Injection 17:45 Oxygen By Nasal RT 02/24/24 Transmitted Cannula 17:33 Stat Ekg For Chest CANDIE 02/24/24 In Process Pain 17:33 Notify Of Changes CANDIE 02/24/24 In Process From Base 17:33 Reuse Technician For CANDIE 02/24/24 In Process 24 Hours 17:33 Emergency Dysrhythmia CANDIE 02/24/24 In Process Protocol 17:33 Rhythm Strips Once [facility] 02/24/24 In Process Every Shift 17:33 Reuse Technician ORDERS 02/24/24 Transmitted 17:36 Docusate Sodium PHA 02/24/24 In Process Capsule (Colace 17:45 Accucheck BD 02/24/24 Transmitted 17:58 Cardiac DIET 02/24/24 Transmitted Diet-2gna,Lofat,Lochol Dinner Metoprolol Xl PHA 02/25/24 In Process Succinate (Toprol Xl) 10:00 Lisinopril Tablet PHA 02/25/24 In Process (Zestril Tablet) 10:00 Atorvastatin (Lipitor) PHA 02/24/24 In Process 22:00 Aspirin Tablet PHA 02/25/24 In Process 10:00 Amiodarone Tablet PHA 02/25/24 In Process (Cordarone Tablet) 10:00 Ac Mild Insulin Scale CANDIE 02/24/24 In Process (Not Rx) 18:56 Glucose Blood PHA 02/24/24 In Process (Accu-Chek Comfort 20:00 Insulin R (Human) PHA 02/24/24 In Process (Insulin R) 20:00 Dextrose 50% Syringe PHA 02/24/24 In Process 19:15 Pantoprazole Tablet PHA 02/25/24 In Process (Protonix Tablet) 06:00 Azithromycin 500mg/ PHA 02/25/24 In Process 250ml (Zithromax 50 10:00 Ceftriaxone 1gm/50ml PHA 02/25/24 In Process D5w (Rocephin) 09:00 Ipratropium Medneb PHA 02/24/24 In Process (Atrovent Medneb) 19:30 Albuterol Medneb PHA 02/24/24 In Process (Ventolin Medneb) 19:30 Blood Culture ISAC 02/24/24 In Process 19:30 Urine Bacterial ISAC 02/24/24 In Process Culture 19:30 Code Status CODE 02/24/24 Transmitted 19:41 Full Code CANDIE 02/24/24 In Process 19:41 Hepatitis B Surface LAB 02/25/24 In Process Antigen 04:00 Hepatitis C Antibody LAB 02/25/24 In Process 04:00 Echo 2d Mode Cardiac US 02/25/24 Resulted DOP 17:36 Comprehensive LAB 02/26/24 Verified Metabolic Panel 04:00 Complete Blood Count LAB 02/26/24 Verified 04:00 Sodium Chloride 0.9% PHA 02/25/24 In Process 11:45 Date of Service: Feb 25, 2024 Billing Provider: MAYANK EATON MD Common Visit Codes: [id number] INP/OBS CARE(HIGH) SUSANNA KEANE Feb 25, 2024 15:19 MAYANK EATON MD Feb 25, 2024 22:39
--- NOTE | 2024-02-25 21:21 | DVHINCON2 ---
Date of service: Feb 25, 2024 Referring Physician Nestor Reason for Consultation Cardiac cath History of Present Illness This is a 68-year-old female with a past medical history of SC, AFib, hypertension, hypercholesterolemia who presented to the ED with complaints of shortness of breath onset yesterday. Per patient, yesterday morning at 4:00 a.m. the patient woke up with severe shortness of breath which gradually worsened. Patient reports her chest pain is located in her central chest area with radiation to the left arm and the severity was 8/10, increased by mobility and improved by taking nitroglycerin. Troponin negative x 3. Chest x-ray shows NAD. Patient was admitted to the hospital. I am asked to consult on this patient. Family History: Cerebrovascular accident (CVA) G8 MOTHER Cholelithiasis G8 FATHER Allergies: Coded Allergies: NO KNOWN ALLERGIES (Unverified , 09/11/20) Home Meds Active Scripts Ciprofloxacin Hcl (Cipro) 500 Mg Tab, 1 TAB PO BID, #20 TAB Prov:ESDRAS CROSS MD 02/22/23 Reported Medications Amiodarone Hcl (Amiodarone Hcl) 200 Mg Tab, 1 TAB PO BID for 30 Days, #60 02/25/24 Levothyroxine Sodium (Levothyroxine Sodium) 25 Mcg Tab, 1 TAB PO DAILY for 90 Days, #90 02/25/24 Dronedarone Hydrochloride (Multaq) 400 Mg Tab, 1 TAB PO BID for 30 Days, #60 02/25/24 Furosemide (Furosemide) 20 Mg Tab, 1 TAB PO DAILY for 30 Days, #30 02/25/24 Apixaban Base (ELIQUIS) 5 Mg Tab, 1 TAB PO BID for 30 Days, #60 02/25/24 Cholecalciferol (VITAMIN D) 2,000 Unit Tab, 1 TAB PO DAILYPRN 09/11/20 Glimepiride (Glimepiride) 2 Mg Tab, 1 TAB PO DAILY for 90 Days, #90 09/11/20 Aspirin (Aspirin Low Dose) 81 Mg Chw, 1 TAB PO DAILY for 90 Days, #90 09/11/20 Fenofibrate (FENOFIBRATE) 145 Mg Tab, 1 TAB PO DAILYPRN 09/11/20 Lisinopril (Lisinopril) 10 Mg Tab, 1 TAB PO DAILY for 30 Days, #30 09/11/20 Metformin Hydrochloride (Metformin Hcl) 1,000 Mg Tab, 1 TAB PO BID for 90 Days, #180 09/11/20 Current Medications Current Medications Medications (Trade) Dose Ordered Sig/Nathaly Route PRN Reason Start Time Stop Time Status Last Admin Apixaban (Eliquis) 5 mg BID PO 02/25/24 10:00 02/25/24 12:39 DC 02/25/24 09:58 Furosemide (Lasix Injection) 10 mg DAILY IV 02/25/24 10:00 02/25/24 11:43 DC 02/25/24 09:59 Metoprolol Succinate (Toprol Xl) 25 mg DAILY PO 02/25/24 10:00 02/25/24 09:58 Lisinopril (Zestril Tablet) 10 mg DAILY PO 02/25/24 10:00 02/25/24 09:57 Atorvastatin Calcium (Lipitor) 20 mg HS PO 02/24/24 22:00 02/24/24 23:17 Aspirin 81 mg DAILY PO 02/25/24 10:00 02/25/24 09:58 Amiodarone HCl (Cordarone Tablet) 200 mg DAILY PO 02/25/24 10:00 02/25/24 09:56 Pantoprazole Sodium (Protonix Tablet) 40 mg DAILY@0600 PO 02/25/24 06:00 02/25/24 04:44 Azithromycin 250 ml @ 125 mls/hr DAILY IV 02/25/24 10:00 02/25/24 09:56 Ceftriaxone Sodium 50 ml @ 100 mls/hr DAILY@09 IV 02/25/24 09:00 02/25/24 09:02 Review of Systems Constitutional: denies: chills, diaphoresis, fatigue, fever, malaise, sweats, weakness, others EENTM: denies: blurred vision, double vision, ear bleeding, ear discharge, ear drainage, ear pain, ear ringing, eye pain, eye redness, hearing loss, mouth pain, mouth swelling, nasal discharge, nose bleeding, nose congestion, nose p ain, photophobia, tearing, throat pain, throat swelling, voice changes, others Respiratory: reports: SOB with excertion; denies: cough, hemoptysis, orthopnea, SOB at rest, shortness of breath, stridor, wheezing, others Cardiovascular: reports: chest pain; denies: dizzy spells, diaphoresis, Dyspnea on exertion, edema, irregular heart beat, left arm pain, lightheadedness, palpitations, PND, syncope, others Gastrointestinal: denies: abdomen distended, abdominal pain, blood streaked bowels, constipated, diarrhea, dysphagia, difficulty swallowing, hematemesis, melena, nausea, poor appetite, poor fluid intake, rectal bleeding, rectal pain, vomiting, others Genitourinary: denies: abnormal vagina bleeding, burning, dyspareunia, dysuria, flank pain, frequency, hematuria, incontinence, pain, , vagina discharge, urgency, others Neurological: denies: dizziness, fainting, headache, left sided numbness, left sided weakness, numbness, paresthesia, pre-existing deficit, right sided numbness, right sided weakness, seizure, speech problems, tingling, tremors, weakness, others Musculoskeletal: denies: back pain, gout, joint pain, joint swelling, muscle pain, muscle stiffness, neck pain, others Integumetry: denies: bruises, change in color, change in hair/nails, dryness, laceration, lesions, lumps, rash, wounds, others Allergic/Immunocompromised: denies: Difficulty Healing, Frequent Infections, Hives, Itching, others Hematologic/Lymphatic: denies: anemia, blood clots, easy bleeding, easy bruising, swollen glands, others Endocrine: denies: excessive hunger, excessive sweating, excessive thirst, excessive urination, flushing, intolerance to cold, intolerance to heat, unexplained weight gain, unexplained weight loss, others Psychiatric: denies: anxiety, bipolar disorder, depression, hopeless, panic disorder, schizophrenia, sleepless, suicidal, others Vital Signs Vital Signs Date Time Temp Pulse Resp B/P (MAP) Pulse Ox O2 Delivery O2 Flow Rate FiO2 02/25/24 19:03 95 Room Air 0.0 02/25/24 19:03 21 02/25/24 16:47 97.8 78 18 110/61 (77) 97.8 Physical Exam GENERAL: Awake, alert, oriented. LUNGS: Clear. CARDIOVASCULAR: Heart sounds are good. ABDOMEN: Soft. Labs/Diagnostic Data Labs Test 02/25/24 15:43 02/25/24 14:00 02/25/24 04:36 02/24/24 23:30 Range/Units POC Glucose 267 H 70-106 mg/dl Lactic Acid Level 2.5 *H 0.4-2.0 mmol/L SARS-CoV-2 Antigen (Rapid) Negative NEGATIVE Test 02/24/24 22:00 02/24/24 18:31 02/24/24 14:24 02/24/24 13:51 Range/Units Troponin I High Sensitivity 5 </=34 ng/L D-Dimer, Quantitative 0.94 H 0.0-0.49 mg/L FEU Aspartate Amino Transferase (AST) 27 13-40 U/L Alanine Aminotransferase (ALT) 34 7-40 U/L Triglycerides Level 191 H < 150 mg/dL Cholesterol Level 204 H < 200 mg/dL LDL Cholesterol 141 H < 100 mg/dL HDL Cholesterol 48 40-59 mg/dL Thyroid Stimulating Hormone (TSH) 12.76 H 0.55-4.78 uIU/mL Plasma/Serum Blood Alcohol 3.8 <10 mg/dL Urine Color Light-yellow Yellow Urine Clarity Clear Clear Urine pH 5.5 5.0-9.0 Urine Specific [place] 1.017 1.001-1.035 Urine Protein 1+ H Negative Urine Ketones Negative Negative Urine Blood Negative Negative /uL Urine Nitrite Negative Negative Urine Bilirubin Negative Negative Urine Urobilinogen Normal Negative mg/dL Urine Leukocyte Esterase Negative Negative /uL Urine RBC <1 0 - 4 /hpf Urine WBC 1 0 - 5 /hpf Urine Squamous Epithelial Cells Few <5 /hpf Urine Bacteria None seen None Seen /hpf Urine Glucose Normal Normal mg/dL Urine Opiates Screen Neg NEGATIVE Urine Fentanyl Screen Neg NEGATIVE Urine Barbiturates Screen Neg NEGATIVE Urine Phencyclidine Screen Neg NEGATIVE Urine Amphetamines Screen Neg NEGATIVE Urine Benzodiazepines Screen Neg NEGATIVE Urine Cocaine Screen Neg NEGATIVE Urine Cannabinoids Screen Neg NEGATIVE White Blood Count 9.9 4.4-10.8 10^3/uL Red Blood Count 4.11 4.0-5.20 10^6/uL Hemoglobin 12.0 L 12.2-16.2 g/dL Hematocrit 36.2 36.0-46.0 % Mean Corpuscular Volume 88.2 80.0-100.0 fL Mean Corpuscular Hemoglobin 29.1 28.0-32.0 pg Mean Corpuscular Hemoglobin Concent 33.0 32.0-36.0 g/dL Red Cell Distribution Width 12.9 11.8-14.3 % Platelet Count 256 140-450 10^3/uL Mean Platelet Volume 8.2 6.9-10.8 fL Neutrophils (%) (Auto) 63.3 37.0-80.0 % Lymphocytes (%) (Auto) 30.7 10.0-50.0 % Monocytes (%) (Auto) 4.3 0.0-12.0 % Eosinophils (%) (Auto) 1.3 0.0-7.0 % Basophils (%) (Auto) 0.4 0.0-2.0 % Neutrophils # (Auto) 6.3 1.6-8.6 10 ^3/uL Lymphocytes # (Auto) 3.0 0.4-5.4 10 ^3/uL Monocytes # (Auto) 0.4 0-1.3 10 ^3/uL Eosinophils # (Auto) 0.1 0-0.8 10 ^3/uL Basophils # (Auto) 0 0-0.2 10 ^3/uL Nucleated Red Blood Cells 0.0 % Sodium Level 140 136-145 mmol/L Potassium Level 4.1 3.5-5.1 mmol/L Chloride Level 109 H 98-107 mmol/L Carbon Dioxide Level 23 20-31 mmol/L Anion Gap 8 5-15 Blood Urea Nitrogen 10 9-23 mg/dL Creatinine 0.63 0.550-1.02 mg/dL Glomerular Filtration Rate Calc 96 >90 mL/min BUN/Creatinine Ratio 15.9 10.0-20.0 Serum Glucose 102 74-106 mg/dL Hemoglobin A1c 8.6 H <5.7 % A1C Calcium Level 8.0 L 8.7-10.4 mg/dL B-Type Natriuretic Peptide 180.29 0-100 pg/mL Microbiology Date/Time Source Procedure Growth Status 02/24/24 23:30 Nose MRSA Screen - Final Complete 02/24/24 14:24 Voided Urine Urine Culture - Preliminary Resulted Assessment Acute on chronic systolic heart failure. Chest pain syndrome. History of SC. Sepsis. Pneumonia. Lactic acidosis. Diabetes. Hypertension. Atrial fibrillation, rate controlled. Obesity. Hyperlipidemia. Plan/Recommendation I agree with your ongoing assessment and care of plan. Echocardiogram. Cardiac cath. Risks and benefits were discussed with the patient. Amiodarone. Aspirin, Lipitor, Metoprolol. IV antibiotics as ordered. Lisinopril. Morphine for pain management. GI prophylactics. Nitro SL. Additional plan as per the hospital course. A total of 45 minutes was spent reviewing the patient record, examining the patient, making a diagnostic and therapeutic plan, discussing this plan with medical personnel, following up on diagnostic studies and following the patient for clinical stability excluding any and all procedures. At least 50% of this time was spent in direct, [id number] contact. Plan discussed with: Patient PENNY LIU MD Feb 25, 2024 20:34
[2024-02-26] VITALS (11 sets, daily range): BP systolic 104–125; BP diastolic 62–89; PULSE 71–109; RESP 12–18; TEMP 97.4–97.7; O2SAT 93–97
[2024-02-26 06:10] LABS: Basophils # (auto) 0 10 ^3/uL (0-0.2); Basophils % (auto) 0.3 % (0.0-2.0); Eosinophils # (auto) 0.2 10 ^3/uL (0-0.8); Eosinophils % (auto) 2.6 % (0.0-7.0); Hematocrit 38.3 % (36.0-46.0); Hemoglobin 12.7 g/dL (12.2-16.2); Lymphocytes # (auto) 3.1 10 ^3/uL (0.4-5.4); Lymphocytes % (auto) 40.6 % (10.0-50.0); Mean Corpuscular Hemoglobin 29.2 pg (28.0-32.0); Mean Corpuscular Hgb Conc. 33.2 g/dL (32.0-36.0); Mean Corpuscular Volume 87.9 fL (80.0-100.0); Monocytes # (auto) 0.6 10 ^3/uL (0-1.3); Monocytes % (auto) 7.2 % (0.0-12.0); Neutrophils # (auto) 3.8 10 ^3/uL (1.6-8.6); Neutrophils % (auto) 49.3 % (37.0-80.0); Nucleated Red Blood Cells % 0.2 %; Platelet Count (auto) 266 10^3/uL (140-450); Red Blood Cells 4.35 10^6/uL (4.0-5.20); White Blood Cell 7.7 10^3/uL (4.4-10.8)
[2024-02-26 06:22] LABS: INR 1.04 (0.9-1.15); Partial Thromboplastin Time 27.3 SEC (24.5-34.5)
[2024-02-26 06:33] LABS: Alanine Aminotransferase 24 U/L (7-40); Alkaline Phosphatase 112 U/L (46-116); Anion Gap 10 (5-15); BUN/Creatinine Ratio 20.3 (10.0-20.0); Blood Urea Nitrogen 14 mg/dL (9-23); Calcium 9.5 mg/dL (8.7-10.4); Carbon Dioxide 25 mmol/L (20-31); Chloride 106 mmol/L (98-107); Potassium 3.9 mmol/L (3.5-5.1); Sodium 141 mmol/L (136-145)
[2024-02-26 06:34] LABS: Albumin 4.1 g/dL (3.2-4.8); Aspartate Aminotransferase 17 U/L (13-40); Bilirubin, Total 0.6 mg/dL (0.2-1.0); Total Protein 6.7 g/dL (5.7-8.2)
[2024-02-26 06:42] LABS: Glucose 143 mg/dL (74-106)
[2024-02-26 10:11] LABS: Hepatitis B Surface Antigen Negative (Negative); Hepatitis C Antibody Negative (Negative)
[2024-02-26] MEDS: HEPARIN IN NS 1000Units/500mL 1,500 ML ONE (10:20)
[2024-02-26] MEDS: IODIXANOL 320MG/ML 100ML BTL IV ONE (10:20)
[2024-02-26] MEDS: ANGIOMAX 250 MG VIAL IV ONE (10:26)
[2024-02-26] MEDS: VERAPAMIL 2.5MG/ML INJ 2ML VIAL IV ONE (10:26)
[2024-02-26] MEDS: fentaNYL CITRATE 100 MCG/2 ML VL ONE (10:26)
[2024-02-26] MEDS: MIDAZOLAM HCL 2MG/2ML 2ml VIAL (1mg/ml) ONE (10:26)
[2024-02-26] MEDS: SODIUM CHL 0.9% 0 ML ONE (10:27)
[2024-02-26] MEDS: NITROGLYCERIN 50MG/250ML 250 ML IV ONE (10:27)
[2024-02-26] MEDS: LIDOCAINE 2%HCL (LOCAL ANESTH.) INJ 20ML MDV ONE (10:27)
[2024-02-26] MEDS: LABETALOL HCL 5 MG/ML ML 20ML VIAL IV ONE (11:31)
--- NOTE | 2024-02-26 12:42 | ECG ---
[facility] Test Date: 2024-02-24 Test Time: 18:44:22 Pat Name: NAOMY MORALES [facility] F Phys[facility] Primary Care Sports Medicine: mai : 1955 Requested By: RAVEN LAUREN Order Number: [id number] Reading MD: Дмитрий Soria Measurements Intervals [place] Rate: 100 P: 0 OH: 0 QRS: 111 QRSD: 83 T: 47 QT: 390 QTc: 503 Interpretive Statements Atrial fibrillation Right axis deviation Low voltage, precordial leads Electronically Signed On 02-26-2024 14:17:13 PST by Дмитрий Soria Please click the below link to view image of tracing.
--- NOTE | 2024-02-26 12:55 | DVHOP ---
DATE OF SURGERY: 02/26/2024 TECHNIQUE PERFORMED: * Left heart catheterization. * Left ventriculogram. * [place] selective left and right coronary angiography. * Right jugular angiography. * Management of conscious sedation. COMPLICATIONS: None. ASSISTANTS: Assisted by the cardiac catheterization staff, Eliza. INDICATIONS: The patient has underlying acute coronary syndrome. Procedure risks and benefits discussed in a standard manner. DESCRIPTION OF PROCEDURE: The patient was brought to cardiovascular lab director. Initially, we have tried to do from the right radial artery. Lidocaine was given. Arterial puncture wire went about 3 cm, did not go far, so the procedure was not continued from right radial artery. Subsequently, we went from the right femoral artery and located very well. At the very first site, the artery was punctured and a 6-[place] arterial line was placed in a standard manner. We put a JL4 catheter in the left vein. With help of a JR4, we also did a right coronary angiography. With the help of pigtail catheter, complete left heart catheterization also has been done. The left ventricle was done with a total of 20 mL dye. Post-LV gram, left ventricular angiography performed with the help of pull-through technique. Aortic pressure also was performed. J-wire was passed. Pigtail catheter also had been discontinued. Procedure completed. Right at the end of the procedure, we also did a right iliofemoral angiography was done and subsequently decided to do manual pressure. Procedure went well. IMPRESSION: * Normal left main. * Left anterior artery is very tortuous, widely open, but no stenosis. * The diagonal artery normal. * Circumflex artery is a large codominant artery. * Right coronary artery is a large luminal artery, normal. * Ejection fraction of the left ventricle is in the range of 70%, normal. CONCLUSION: * No evidence of any occlusive coronary artery disease. * Coronary arteries are very tortuous, consistent with hypertensive cardiomyopathy. * Ejection fraction of the left ventricle is 70%. Keira Arreola MD MP/AYO/JENNIFER TID: [id number] RECEIPT: [id number] [facility]OSPITALEd[facility]
--- NOTE | 2024-02-26 13:28 | DVHPN2 ---
Progress Note - Dictate Date Seen: Feb 26, 2024 Has the PT tested + for MRSA If YES, has PT been informed?: Yes Medical Necessity Reason Pt with a Central, PICC or Fol: No Subjective Patient was seen and evaluated in follow up. Echocardiogram shows mildly reduced left ventricular systolic function estimated ejection fraction of 45-50%. There is a grade 1 diastolic dysfunction. Normal right ventricular size and dimension. Normal right ventricular systolic function. Mildly dilated right and left atria. The aortic valve is thickened and sclerotic. Mitral valve is mildly thickened there is mild mitral valve regurgitation. There Is a mild tricuspid valve regurgitation. There is a mild pulmonary valve regurgitation. No significant pericardial effusion. Patient is scheduled for left heart cath today. vital signs Vital Sign Date Time Temp Pulse Resp B/P (MAP) Pulse Ox O2 Delivery O2 Flow Rate FiO2 02/26/24 09:11 97.4 79 18 111/65 (80) 95 97.4 02/25/24 20:00 Room Air* 0 21 Total Intake and Output 02/25/24 02/25/24 02/26/24 15:00 23:00 07:00 Intake Total 50 ml 800 ml 150 ml Balance 50 ml 800 ml 150 ml medications Current Medications Medications Dose Ordered Sig/Nathaly Route Start Time Stop Time Status Last Admin Dose Admin Nitroglycerin 0.4 mg Q5MINP PRN SL 02/24/24 17:45 Morphine Sulfate 2 mg Q30M PRN IV 02/24/24 17:45 Docusate Sodium 100 mg PRN PRN PO 02/24/24 17:45 Metoprolol Succinate 25 mg DAILY PO 02/25/24 10:00 02/25/24 09:58 25 MG Lisinopril 10 mg DAILY PO 02/25/24 10:00 02/25/24 09:57 10 MG Atorvastatin Calcium 20 mg HS PO 02/24/24 22:00 02/25/24 20:50 20 MG Aspirin 81 mg DAILY PO 02/25/24 10:00 02/25/24 09:58 81 MG Amiodarone HCl 200 mg DAILY PO 02/25/24 10:00 02/25/24 09:56 200 MG Diagnostic Test (Pha) 1 strip IQ4HR 02/24/24 20:00 02/26/24 04:00 1 STRIP Insulin Human Regular IQ4HR SC 02/24/24 20:00 02/25/24 20:58 3 UNITS Dextrose 50 ml UD PRN IV 02/24/24 19:15 Pantoprazole Sodium 40 mg DAILY@0600 PO 02/25/24 06:00 02/26/24 05:08 40 MG Azithromycin 250 ml @ 125 mls/hr DAILY IV 02/25/24 10:00 02/25/24 09:56 125 MLS/HR Ceftriaxone Sodium 50 ml @ 100 mls/hr DAILY@09 IV 02/25/24 09:00 02/25/24 09:02 100 MLS/HR Ipratropium [place] 0.5 mg Q6HPRN PRN NEB 02/24/24 19:30 Albuterol 2.5 mg Q6HPRN PRN NEB 02/24/24 19:30 objective GENERAL: Awake, alert, oriented. LUNGS: Clear. CARDIOVASCULAR: Heart sounds are good. ABDOMEN: Soft. laboratory and microbiology Laboratory Tests 02/26/24 05:01 Test 02/26/24 05:01 Range/Units Serum Glucose 143 H 74-106 mg/dL Problem List Acute on chronic systolic heart failure. Chest pain syndrome. History of [place]. Sepsis. Pneumonia. Lactic acidosis. Diabetes. Hypertension. Atrial fibrillation, rate controlled. Obesity. Hyperlipidemia. Assessment/Plan Continued all current supportive medical care. Amiodarone. Aspirin, Lipitor, Metoprolol. IV antibiotics as ordered. Lisinopril. Morphine for pain management. GI prophylactics. Nitro SL. Additional plan as per the hospital course. Plan discussed with: Patient PENNY LIU MD Feb 26, 2024 12:02
[2024-02-26] MEDS ORDERED: METO25TA36 PO (14:40)
[2024-02-26] MEDS ORDERED: ATOR-507 PO (14:40)
[2024-02-26] MEDS ORDERED: PANT40TA2 PO (14:40)
[2024-02-26] MEDS ORDERED: AZIT500T66 PO (15:17)
[2024-02-26] MEDS: AZITHROMYCIN 250 MG TAB PO ONE (17:04)
--- NOTE | 2024-02-26 17:12 | DVHDSRES ---
Discharge Summary Date of Admission Resident Creating Document: SUSANNA KEANE RESDIJORGE ALBERTO Feb 24, 2024 at 17:33 Date of Discharge: Feb 26, 2024 Admitting Diagnosis Shortness of breaths Wounds: Labs/Diagnostic Data: Laboratory Results Test 02/26/24 13:07 02/26/24 05:01 02/25/24 20:16 02/25/24 04:36 POC Glucose 143 mg/dl (70-106) White Blood Count 7.7 10^3/uL (4.4-10.8) Red Blood Count 4.35 10^6/uL (4.0-5.20) Hemoglobin 12.7 g/dL (12.2-16.2) Hematocrit 38.3 % (36.0-46.0) Mean Corpuscular Volume 87.9 fL (80.0-100.0) Mean Corpuscular Hemoglobin 29.2 pg (28.0-32.0) Mean Corpuscular Hemoglobin Concent 33.2 g/dL (32.0-36.0) Red Cell Distribution Width 13.0 % (11.8-14.3) Platelet Count 266 10^3/uL (140-450) Mean Platelet Volume 9.0 fL (6.9-10.8) Neutrophils (%) (Auto) 49.3 % (37.0-80.0) Lymphocytes (%) (Auto) 40.6 % (10.0-50.0) Monocytes (%) (Auto) 7.2 % (0.0-12.0) Eosinophils (%) (Auto) 2.6 % (0.0-7.0) Basophils (%) (Auto) 0.3 % (0.0-2.0) Neutrophils # (Auto) 3.8 10 ^3/uL (1.6-8.6) Lymphocytes # (Auto) 3.1 10 ^3/uL (0.4-5.4) Monocytes # (Auto) 0.6 10 ^3/uL (0-1.3) Eosinophils # (Auto) 0.2 10 ^3/uL (0-0.8) Basophils # (Auto) 0 10 ^3/uL (0-0.2) Nucleated Red Blood Cells 0.2 % Prothrombin Time 11.0 sec (9.3-11.8) Prothrombin Time INR 1.04 (0.9-1.15) Activated Partial Thromboplast Time 27.3 SEC (24.5-34.5) Sodium Level 141 mmol/L (136-145) Potassium Level 3.9 mmol/L (3.5-5.1) Chloride Level 106 mmol/L (98-107) Carbon Dioxide Level 25 mmol/L (20-31) Anion Gap 10 (5-15) Blood Urea Nitrogen 14 mg/dL (9-23) Creatinine 0.69 mg/dL (0.550-1.02) Glomerular Filtration Rate Calc 94 mL/min (>90) BUN/Creatinine Ratio 20.3 (10.0-20.0) Serum Glucose 143 mg/dL (74-106) Calcium Level 9.5 mg/dL (8.7-10.4) Total Bilirubin 0.6 mg/dL (0.2-1.0) Aspartate Amino Transferase (AST) 17 U/L (13-40) Alanine Aminotransferase (ALT) 24 U/L (7-40) Alkaline Phosphatase 112 U/L (46-116) Total Protein 6.7 g/dL (5.7-8.2) Albumin 4.1 g/dL (3.2-4.8) Lactic Acid Level 1.7 mmol/L (0.4-2.0) Hepatitis B Surface Antigen Negative (Negative) Hepatitis C Antibody Negative (Negative) Test 02/24/24 23:30 02/24/24 22:00 02/24/24 18:31 02/24/24 14:24 SARS-CoV-2 Antigen (Rapid) Negative (NEGATIVE) Troponin I High Sensitivity 5 ng/L (</=34) D-Dimer, Quantitative 0.94 mg/L FEU (0.0-0.49) Triglycerides Level 191 mg/dL (< 150) Cholesterol Level 204 mg/dL (< 200) LDL Cholesterol 141 mg/dL (< 100) HDL Cholesterol 48 mg/dL (40-59) Thyroid Stimulating Hormone (TSH) 12.76 uIU/mL (0.55-4.78) Plasma/Serum Blood Alcohol 3.8 mg/dL (<10) Urine Color Light-yellow (Yellow) Urine Clarity Clear (Clear) Urine pH 5.5 (5.0-9.0) Urine Specific [place] 1.017 (1.001-1.035) Urine Protein 1+ (Negative) Urine Ketones Negative (Negative) Urine Blood Negative /uL (Negative) Urine Nitrite Negative (Negative) Urine Bilirubin Negative (Negative) Urine Urobilinogen Normal mg/dL (Negative) Urine Leukocyte Esterase Negative /uL (Negative) Urine RBC <1 /hpf (0 - 4) Urine WBC 1 /hpf (0 - 5) Urine Squamous Epithelial Cells Few /hpf (<5) Urine Bacteria None seen /hpf (None Seen) Urine Glucose Normal mg/dL (Normal) Urine Opiates Screen Neg (NEGATIVE) Urine Fentanyl Screen Neg (NEGATIVE) Urine Barbiturates Screen Neg (NEGATIVE) Urine Phencyclidine Screen Neg (NEGATIVE) Urine Amphetamines Screen Neg (NEGATIVE) Urine Benzodiazepines Screen Neg (NEGATIVE) Urine Cocaine Screen Neg (NEGATIVE) Urine Cannabinoids Screen Neg (NEGATIVE) Test 02/24/24 13:51 Hemoglobin A1c 8.6 % A1C (<5.7) B-Type Natriuretic Peptide 180.29 pg/mL (0-100) Other Laboratory Tests 02/26/24 05:01 Brief Hx & Hospital Course: This is a 68-year-old female, past medical history of NC, AFib, hypertension, hypercholesterolemia, came to the hospital with shortness of breaths. Per patient, today morning at 4:00 a.m. the patient waking up with severe shortness of breath which gradually worsened. Shortness of breaths was associated with chest pain and sweating. Chest pain was central chest, radiated to the left arm, comprehensive and the severity was 8/10, increased by mobility and improved by taking nitroglycerin. The patient has history of NC, 4 months back in [facility], did not performed catheterization. Chest x-ray showed bilateral reticulonodular infiltration with pulmonary vascular congestion. EKG showed atrial fibrillation with no acute ST or T-wave changes, trop I series were negative echo showed mildly reduced left ventricular systolic function with EF 45-50 %. Patient was put on acute on chronic systolic heart failure protocol and possible NC. The patient was given aspirin, clopidogrel, nitroglycerin, lisinopril, metoprolol, and atorvastatin. The patient was also diuresed with Lasix. In based on chest x-ray finding and clinical symptoms, the patient was also treated for pneumonia and given injection azithromycin and ceftriaxone. Home medication including Eliquis for the atrial fibrillation was continue during the hospital admission. Cardiology was consulted, performed angiography, showed no significant vascular obstruction. On 07/27/2023, the patient was feeling better, clinically and hemodynamically patient was stable. Discharge plan discussed with the patient and the patient was discharged. Discharge plan: Follow up with the PCP within 1 week of the discharge Follow up with the discharge Clinic within 1 week after discharge Follow up with the Cardiology on outpatient basis Aspirin 81 mg daily Clopidogrel 75 mg Atorvastatin 40 mg daily Lisinopril 5 mg daily Metoprolol 25 mg daily Azithromycin 500 with limited for 5 days Consults/Reason for consult Cardiology: For possible NC Operations or Procedures [place] [id number] Ph: [phone] DIAGNOSTIC IMAGING Diagnostic Imaging Report : [id number] Signed PATIENT: NAOMY MORALES ACCT: [id number] UNIT: [id number] : 1955 LOC: [facility] ROOM / BED: [facility] / AGE / SEX: 68 / F ADM STATUS: ADM IN SERVICE 35 ORDERING PHYSICIAN: SUSANNA KEANE RESPHILL PROCEDURE(s): ECIDC - ECHO 2D MODE CARDIAC DOP REASON: SOB and pedel edema ORDER NUMBER(s): [id number], ACCESSION NUMBER(s): [id number] APPROVED REPORT EXAM: Two-dimensional and M-mode echocardiogram with Doppler and color Doppler. Blood Pressure: 133/76 mmHg INDICATION sob and pedal edema DIMENSIONS LVDd 4.0 (3.8-5.7cm) LA (2D) 3.9 (1.9-4.0cm) Aortic Root 2.8 (2.0- 3.7cm) LVDs 2.8 (2.5-4.0cm) LA (MM) (1.9-4.0cm) Aortic Cusp Exc 1.7 (1.5- 2.0cm) EF (%) 54.7 (55-70%) Rt. Atrium 3.7 (1.9-4.0cm) Asc. Aorta cm IVSd 1.3 (0.7-1.1cm) RV (D) 3.2 (1.8-2.4cm) PWd 1.1 (0.7-1.1cm) Mitral Valve Mitral Mitral Stenosis E wave 1.20m/s MV Mean GR. mmHg A wave 0.47m/s MV Peak GR. 52mmHg E/A ratio 2.6 2D MVA cm2 DECEL Time 172ms PRESS 1/2 Time ms Aortic Valve Aortic Valve Aortic Stenosis V1 0.83m/s AO Mean GR. 5mmHg V2 1.52m/s AO Peak GR. 9mmHg Pulmonic Valve V2 1.00m/s Tricuspid Valve TR Velocity 1.82m/s RVSP 15mmHg Conclusion Mildly reduced left ventricular systolic function estimated ejection fraction of 45-50%. There is a grade 1 diastolic dysfunction. Normal right ventricular size and dimension. Normal right ventricular systolic function. Mildly dilated right and left atria. The aortic valve is thickened and sclerotic. Mitral valve is mildly thickened there is mild mitral valve regurgitation. There Is a mild tricuspid valve regurgitation. There is a mild pulmonary valve regurgitation. No significant pericardial effusion. SIGNED BY: GERONIMO WILLIAMSON MD SIGNED DATE/TIME: 02/25/24 1130 CC: Condition at Discharge: Good Final Diagnosis/Problems List Acute on chronic systolic heart failure Possible unstable angina Ruled out NC history of NC, 4 months back Sepsis, likely due to pneumonia Pneumonia, likely due to Gram-positive Gram-negative bacteria/viral lactic acidosis chronic Atrial fibrillation uncontrolled diabetes mellitus Hypertension Hyperlipidemia Diabetes mellitus type 2 Obesity, BMI 34.6 Discharge Disposition: Home Discharge Instruct/Medications Diet: Cardiac 2g Na,low cholest Activity: No Restrictions, As Tolerated Follow Up/Referral: Follow up with the PCP within 1 week after discharge. Follow up with the Cardiology on outpatient basis Follow up with the [place] clinic within 1 week discharge. Medications: Atorvastatin 40 mg daily Metoprolol 25 mg daily Protonix 40 mg daily for 30 days Continue home meds Discharge Statement: "Patient was advised to return to the ER or call 911 if any headaches, dizziness, shortness of breath, chest pain, abdominal pain, bleeding, fevers, or worsening of medical condition. Patient was counseled about treatment plan, medications, possible side effects, patientverbalized understanding. All questions were answered to the best of my ability. This discharge took greater then 30 minutes in planning, reviewing documentation, counseling the patient, and discussing with other team members." ASSESSMENT ASSESSMENT Assessment Acute on chronic systolic heart failure Possible unstable angina Ruled out NC history of NC, 4 months back Sepsis, likely due to pneumonia Pneumonia, likely due to Gram-positive Gram-negative bacteria/viral lactic acidosis chronic Atrial fibrillation uncontrolled diabetes mellitus Hypertension Hyperlipidemia Diabetes mellitus type 2 Obesity, BMI 34.6 Date of Service: Feb 26, 2024 Billing Provider: SHAMIKA GUERRA MD Common Visit Codes: 17867-XSP/OBS DISCH DAY >30min SUSANNA KEANE RESDIENT Feb 26, 2024 17:12 SHAMIKA GUERRA MD Feb 27, 2024 09:33
[2024-02-27] MEDS ORDERED: AZITHROMYCIN 250 MG TAB PO SCH (10:00)
== END 2024-02-26 18:10 | disposition home or self-care (01) | DRG 871 ==
LOC: ER 13:31 → TELE 17:33 → TELE-WESTW 22:13
PROVIDERS: ADMIT Student in an Organized Health Care Education/Training Program; ATTEND Student in an Organized Health Care Education/Training Program
PROC: 4A023N7 Measurement of Cardiac Sampling and Pressure, Left Heart, Percutaneous Approach (ICD-10-PCS; principal; 2024-02-26)
PROC: B211YZZ Fluoroscopy of Multiple Coronary Arteries using Other Contrast (ICD-10-PCS; 2024-02-26)
PROC: B215YZZ Fluoroscopy of Left Heart using Other Contrast (ICD-10-PCS; 2024-02-26)
PROC: B41FYZZ Fluoroscopy of Right Lower Extremity Arteries using Other Contrast (ICD-10-PCS; 2024-02-26)
DX: A41.50 Gram-negative sepsis, unspecified (principal); I50.23 Acute on chronic systolic (congestive) heart failure; J12.9 Viral pneumonia, unspecified; J15.69 Pneumonia due to other Gram-negative bacteria; J15.9 Unspecified bacterial pneumonia; I48.20 Chronic atrial fibrillation, unspecified; E87.20 Acidosis, unspecified; I25.110 Atherosclerotic heart disease of native coronary artery with unstable angina pectoris; I43 Cardiomyopathy in diseases classified elsewhere; Z20.822 Contact with and (suspected) exposure to COVID-19; E11.9 Type 2 diabetes mellitus without complications; E66.9 Obesity, unspecified; I11.0 Hypertensive heart disease with heart failure; F17.210 Nicotine dependence, cigarettes, uncomplicated; E78.00 Pure hypercholesterolemia, unspecified; J45.909 Unspecified asthma, uncomplicated; Z90.49 Acquired absence of other specified parts of digestive tract; Z90.710 Acquired absence of both cervix and uterus; Z83.3 Family history of diabetes mellitus; I25.2 Old myocardial infarction; Z82.3 Family history of stroke; Z79.01 Long term (current) use of anticoagulants; Z68.34 Body mass index [BMI] 34.0-34.9, adult
CPT/HCPCS: 36415; 71045; 75710; 80048; 80053; 80061; 80307; 80320; 81001; 82962; 83036; 83605; 83880; 84443; 84450; 84460; 84484; 85025; 85379; 85610; 85730; 86803; 87040; 87081; 87086; 87340; 87426; 93005; 93306; 93458; 99152; 99291; 99292; G0378; J1815; J2250; Q9967